=== PATIENT | male | born 1980 | race Two or more races ===

== ENCOUNTER 2017-01-25 21:50 | Emergency (ER) | payer SELFPAY ==
[~2017-01-25] VITALS: Ht 160 cm; Wt 77.1 kg
[2017-01-25 22:00] VITALS: BP 129/83
[2017-01-25 22:10] LABS: BASO # 0.1 x10^3/uL (0.0-0.2); BASO % 1 % (0-3); EOS % 2 % (0-3); HEMATOCRIT 45.4 % (39.0-53.0); HEMOGLOBIN 15.6 g/dL (13.0-17.5); LYMPH # 3.1 x10^3/uL (1.0-4.8); LYMPH % 37 % (24-48); MEAN CORPUSCULAR HEMOGLOBIN 30 pg (25-35); MEAN CORPUSCULAR HGB CONC 34 g/dL (31-37); MEAN CORPUSCULAR VOLUME 86 fL (79-100); MONO % 8 % (0-9); NEUT % 52 % (31-73); PLATELET COUNT 215 x10^3/uL (140-400); RED BLOOD COUNT 5.27 x10^6/uL (4.30-5.70); RED CELL DISTRIBUTION WIDTH 13.7 % (11.5-14.5); WHITE BLOOD COUNT 8.4 x10^3/uL (4.0-11.0)
[2017-01-25 22:23] LABS: CALCIUM 8.5 mg/dL (8.5-10.1); CREATININE 0.8 mg/dL (0.7-1.3); POTASSIUM 4.2 mmol/L (3.5-5.1)
[2017-01-25 22:30] LABS: ALBUMIN/GLOBULIN RATIO 1.2 (1.0-1.7); TOTAL BILIRUBIN 0.4 mg/dL (0.2-1.0); TOTAL PROTEIN 7.4 g/dL (6.4-8.2)
[2017-01-26] MEDS ORDERED: LIDO:MAALOX:DONNATAL 1:1:1 15 ML SINGLE DOSE SWSW ONE (01:00)
[2017-01-26] MEDS ORDERED: KETOROLAC 15 MG/ML VIAL. IV ONE (01:00)
--- NOTE | 2017-01-26 01:04 | PHYS DOC ---
Past Medical History Past Medical History: High Cholesterol Past Surgical History: No Surgical History Alcohol Use: Occasionally Drug Use: None Adult General Chief Complaint Chief Complaint: CHEST PAIN HPI HPI Patient is a 36 year old gentleman who presents here today complaining of left- sided chest pain that started approximately 2 hours prior to arrival while he was sitting watching TV. Patient reports currently the pain is completely gone. Patient has any diaphoresis terns of breath nausea vomiting diarrhea radiating pain fevers shakes or chills. Patient does not smoke. Patient denies any history of hypertension or diabetes. No family history of heart disease. Patient reports he was told once his cholesterol levels will be applied. Patient has any drugs. Patient has a liver lung or kidney problems. Patient reports pain is a sharp/burning sensation in his midsternal area. Patient reports occasional cough. Patient reports increased pain with coughing. Patient has any abdominal pain. Patient's physical exam the ER was significant for reducible tenderness palpation to his midsternal region. Patient's EKG revealed normal sinus rhythm with non-specific ST-T wave female is any evidence of ST elevation [place]. She chest x-ray revealed normal heart no infiltrates or effusions. Constitutional: Denies fever or chills [] Eyes: Denies change in visual acuity, redness, or eye pain [] All other review systems are negative except as documented in the history of present illness portion. Constitutional: Well developed, well nourished, no acute distress, non-toxic appearance. [] HENT: Normocephalic, atraumatic, bilateral external ears normal, oropharynx moist, no oral exudates, nose normal. [] Eyes: EOMI, conjunctiva normal, no discharge. [] Neck: Normal range of motion, supple, no stridor. [] Cardiovascular:Heart rate regular rhythm Lungs & Thorax: Bilateral breath sounds clear to auscultation [] Abdomen: Bowel sounds normal, soft, no tenderness, no masses, no pulsatile masses. [] Skin: Warm, dry, no erythema Back: No tenderness, no CVA tenderness. [] Extremities: No tenderness, no cyanosis, no clubbing, ROM intact, no edema. [] Neurologic: Alert and oriented X 3, normal motor function, normal sensory function, no focal deficits noted. [] Psychologic: Affect normal, judgement normal, mood normal. [] Assessment and plan this is a 36-year-old gentleman who is extremely low risk for cardiac origin of his chest pain. Patient was monitored in the ER for approximately 3 and half hours. During that time. Patient had a normal troponin and normal labs. Patient had a 2 hour troponin level that was also unremarkable. Patient's EKG in the ER is negative. I discussed with the patient that he is low risk for cardiac disease although he is not 0 risk. Patient understands that he is to follow up closely with his primary care physician for further outpatient evaluation including a stress test. Patient is currently clinically and hemodynamically stable for discharged home. Current Medications Current Medications Current Medications Medications (Trade) Dose Ordered Sig/Zeb Start Time Stop Time Status Last Admin Dose Admin Ketorolac Tromethamine (Toradol) 15 mg 1X ONCE 01/26/17 01:00 01/26/17 01:01 Multi-Ingredient Mouthwash/Gargle (Gi Cocktail Single Dose) 15 ml 1X ONCE 01/26/17 01:00 01/26/17 01:01 Allergies Allergies Allergies Coded Allergies Type Severity Reaction Last Updated Verified No Known Drug Allergies 01/25/17 No Current Patient Data Vital Signs Vital Signs Date Time Temp Pulse Resp B/P (MAP) Pulse Ox O2 Delivery O2 Flow Rate FiO2 01/25/17 22:00 98.2 73 16 129/83 (98) 98 Room Air 98.2 Lab Values Laboratory Tests Test 01/25/17 22:01 01/26/17 00:18 White Blood Count 8.4 x10^3/uL (4.0-11.0) Red Blood Count 5.27 x10^6/uL (4.30-5.70) Hemoglobin 15.6 g/dL (13.0-17.5) Hematocrit 45.4 % (39.0-53.0) Mean Corpuscular Volume 86 fL (79-100) Mean Corpuscular Hemoglobin 30 pg (25-35) Mean Corpuscular Hemoglobin Concent 34 g/dL (31-37) Red Cell Distribution Width 13.7 % (11.5-14.5) Platelet Count 215 x10^3/uL (140-400) Neutrophils (%) (Auto) 52 % (31-73) Lymphocytes (%) (Auto) 37 % (24-48) Monocytes (%) (Auto) 8 % (0-9) Eosinophils (%) (Auto) 2 % (0-3) Basophils (%) (Auto) 1 % (0-3) Neutrophils # (Auto) 4.4 x10^3uL (1.8-7.7) Lymphocytes # (Auto) 3.1 x10^3/uL (1.0-4.8) Monocytes # (Auto) 0.7 x10^3/uL (0.0-1.1) Eosinophils # (Auto) 0.2 x10^3/uL (0.0-0.7) Basophils # (Auto) 0.1 x10^3/uL (0.0-0.2) Sodium Level 139 mmol/L (136-145) Potassium Level 4.2 mmol/L (3.5-5.1) Chloride Level 105 mmol/L (98-107) Carbon Dioxide Level 26 mmol/L (21-32) Anion Gap 8 (6-14) Blood Urea Nitrogen 13 mg/dL (8-26) Creatinine 0.8 mg/dL (0.7-1.3) Estimated GFR (Cockcroft-Gault) 110.0 BUN/Creatinine Ratio 16 (6-20) Glucose Level 120 mg/dL (70-99) H Calcium Level 8.5 mg/dL (8.5-10.1) Total Bilirubin 0.4 mg/dL (0.2-1.0) Aspartate Amino Transferase (AST) 54 U/L (15-37) H Alanine Aminotransferase (ALT) 123 U/L (16-63) H Alkaline Phosphatase 93 U/L (46-116) Troponin I Quantitative < 0.017 ng/mL (0.000-0.055) < 0.017 ng/mL (0.000-0.055) VQ-Qdj-H-Type Natriuretic Peptide 6 pg/mL (0-124) Total Protein 7.4 g/dL (6.4-8.2) Albumin 4.0 g/dL (3.4-5.0) Albumin/Globulin Ratio 1.2 (1.0-1.7) Lipase 198 U/L (73-393) Laboratory Tests 01/25/17 22:01 Laboratory Tests 01/25/17 22:01 EKG EKG [] Radiology/Procedures Radiology/Procedures [] Course & Med Decision Making Course & Med Decision Making Pertinent Labs and Imaging studies reviewed. (See chart for details) [] Dragon Disclaimer Dragon Disclaimer This electronic medical record was generated, in whole or in part, using a voice recognition dictation system. Departure Departure Impression: Primary Impression: Chest pain Disposition: HOME, SELF-CARE Condition: STABLE Referrals: NO PCP (PCP) Patient Instructions: Chest Pain (Nonspecific) Additional Instructions: Please follow up with your family doctor for further evaluation of your chest discomfort. He should talk to them within the next 1-2 days to help him set you up with a outpatient stress test to further rule out any cardiac etiology of your pain. Problem Qualifiers Primary Impression: Chest pain Chest pain type: unspecified Qualified Codes: R07.9 - Chest pain, unspecified NICOLE VAZQUEZ MD Jan 26, 2017 01:04
--- NOTE | 2017-01-26 06:09 | EKG ---
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
--- NOTE | 2017-01-26 08:06 | RAD ---
Portable chest, 01/25/2017: History: Chest pain The heart size and pulmonary vascularity are normal. No pulmonary infiltrates are seen. There is no evidence of pleural fluid. IMPRESSION: No acute cardiopulmonary abnormality is detected.
== END 2017-01-26 01:18 | disposition home or self-care (01) ==
LOC: ER 21:50
DX: R07.9 Chest pain, unspecified (principal); E78.00 Pure hypercholesterolemia, unspecified
CPT/HCPCS: 36415; 71010; 80053; 83690; 83880; 84484; 85027; 93005; 96374; 99285; J1885